=== PATIENT | female | born 1945 | race Caucasian/White ===

== ENCOUNTER 2018-04-20 14:41 | Outpatient (CLI) | payer MEDICARE ==
[~2018-04-20] VITALS: Ht 162.6 cm; Wt 54.7 kg
[2018-04-20] MEDS ORDERED: COZAAR 25MG25 MG/TAB PO (14:59)
[2018-04-20] MEDS ORDERED: CIPRO 500MG TA500 MG PO (15:01)
[2018-04-20] MEDS ORDERED: XIFAXAN550 MG PO (15:01)
[2018-04-20] MEDS ORDERED: FOLIC ACID 11 MG/TA1 PO (15:02)
[2018-04-20] MEDS ORDERED: ASPIRIN E.C. 8181 MG PO (15:02)
[2018-04-20 15:03] VITALS: BP 121/52; PULSE 76; TEMP 98.1
== END 2018-04-20 16:30 | disposition home or self-care (01) ==
LOC: EUO 14:41
DX: M81.0 Age-related osteoporosis without current pathological fracture (principal)
CPT/HCPCS: J3489

== ENCOUNTER 2019-04-26 14:18 | Outpatient (CLI) | payer MEDICARE ==
[~2019-04-26] VITALS: Ht 162.6 cm; Wt 53.0 kg
[~2019-04-26 14:18] MED LIST: ASPIRIN E.C. 8181 MG PO; CIPRO 500MG TA500 MG PO; COZAAR 25MG25 MG/TAB PO; FOLIC ACID 11 MG/TA1 PO; XIFAXAN550 MG PO
[2019-04-26 14:30] VITALS: BP 120/62; PULSE 75; TEMP 97.7
== END 2019-04-26 16:03 | disposition home or self-care (01) ==
LOC: EUO 14:18
DX: M81.0 Age-related osteoporosis without current pathological fracture (principal)
CPT/HCPCS: J3489